=== PATIENT | female | born 1960 | race Caucasian/White ===

== ENCOUNTER 2021-09-11 14:55 | Outpatient (CLI) | payer BC | END 2021-09-11 23:59 | disposition home or self-care (01) | LOC: RAD 14:55 | PROVIDERS: ATTEND Ophthalmology | DX: M47.816 Spondylosis without myelopathy or radiculopathy, lumbar region (principal); M41.86 Other forms of scoliosis, lumbar region; M48.061 Spinal stenosis, lumbar region without neurogenic claudication; M76.9 Unspecified enthesopathy, lower limb, excluding foot | CPT/HCPCS: 72110; 73502 ==